=== PATIENT | female | born 1930 ===

== ENCOUNTER 2018-12-17 20:35 | Inpatient (IN) | payer MEDICAID ==
[2018-12-17 21:35] LABS: BASO # 0.1 K/uL (0.0-0.2); BASO % 0.4 % (0.0-2.0); EOS % 0.3 % (0.0-4.0); HEMOGLOBIN 11.8 g/dL (12.0-16.0); LYMPH # 2.6 K/uL (1.0-4.3); LYMPH % 22.1 % (20.0-40.0); MEAN CELL VOLUME 86.6 fl (81.0-99.0); MEAN CORPUSCULAR HEMOGLOBIN 28.5 pg (27.0-31.0); MEAN CORPUSCULAR HGB CONC 32.9 g/dL (33.0-37.0); MEAN PLATELET VOLUME 9.5 fl (7.2-11.7); MONO # 0.9 K/uL (0.0-0.8); MONO % 7.2 % (0.0-10.0); NEUT # 8.2 K/uL (1.8-7.0); RBC 4.15 Mil/uL (3.80-5.20); RED CELL DISTRIBUTION WIDTH 12.9 % (11.5-14.5); WHITE BLOOD COUNT 11.8 K/uL (4.8-10.8)
[2018-12-17 21:40] LABS: INR 1.1; PROTHROMBIN TIME 12.3 Seconds (9.8-13.1)
[2018-12-17 21:43] LABS: PARTIAL THROMBOPLASTIN TIME 30.7 Seconds (25.6-37.1)
[2018-12-17 21:49] LABS: ALB/GLOB RATIO 1.3 (1.0-2.1); ALBUMIN 4.6 g/dL (3.5-5.0); CALCIUM 9.5 mg/dL (8.4-10.2)
[2018-12-17] MEDS ORDERED: Potassium Chloride 20 mEq ER Tab PO STA (21:59)
--- NOTE | 2018-12-17 22:10 | ED PDOC ---
HPI: Chest Pain Time Seen by Provider: 12/17/18 20:45 Chief Complaint (Nursing): Palpitations Chief Complaint (Provider): Chest Pressure History Per: Patient History/Exam Limitations: no limitations Onset/Duration Of Symptoms: Days (x 2 weeks) Current Symptoms Are (Timing): Still Present Quality: Pressure Additional Complaint(s): 88 year old female with a history of hypothyroidism, HTN, vertigo and gastritis presents to the ED for evaluation of intermittent chest pressure for two weeks. Patient reports a feeling of something "stuck" in the upper part of her chest and as though she needs to cough or spit it out. Shhe was seen at an urgent care center today, found to have a very elevated heart rate and send to the ER. Patient is visiting from [place] and reports compliance with regular medications (Simvastatin, Losartan, levothyroxine, Meclizine and Omeprazole). Denies shortness of breath and leg swelling. PMD: none provided Past Medical History Reviewed: Historical Data, Nursing Documentation, Vital Signs Vital Signs: Last Vital Signs Temp 97.7 F 12/17/18 21:00 Pulse 160 H 12/17/18 21:12 Resp 22 12/17/18 21:00 BP 137/70 12/17/18 21:12 Pulse Ox 99 12/17/18 21:00 - Medical History PMH: Gastritis, HTN, Hypercholesterolemia, Hypothyroidism Other PMH: vertigo - Family History Family History: States: No Known Family Hx - Social History Current smoker - smoking cessation education provided: No Alcohol: None Drugs: Denies - Home Medications Home Medications: Ambulatory Orders Medication Instructions Recorded Levothyroxine [Synthroid] 50 mcg PO DAILY 12/17/18 Losartan [Cozaar] 50 mg PO BID 12/17/18 Omeprazole Magnesium [Acid Talent Development Specialist] 20 mg PO DAILY 12/17/18 hydroCHLOROthiazide [Hydrodiuril] 25 mg PO DAILY 12/17/18 - Allergies Allergies/Adverse Reactions: Allergies Allergy/AdvReac Type Severity Reaction Status Date / Time No Known Allergies Allergy Verified 12/17/18 20:42 DEVI Risk Score for UA/NSTEMI - DEVI Risk Score Age > 64: YES 3 or more CAD Risk Factors: NO Known CAD (Stenosis greater than 50%): NO Aspirin use in past 7 days: NO Severe Angina: NO EKG ST changes greater than 0.5mm: NO Positive Cardiac Marker: YES DEVI Score: 2 Risk %: 8% Review of Systems ROS Statement: Except As Marked, All Systems Reviewed And Found Negative Cardiovascular: Positive for: Chest Pain (pressure; foreign body sensation ("stuck" in upper chest)) Respiratory: Negative for: Cough, Shortness of Breath Musculoskeletal: Negative for: Leg Pain (or swelling) Physical Exam - Reviewed Nursing Documentation Reviewed: Yes Vital Signs Reviewed: Yes - Physical Exam Appears: Positive for: No Acute Distress Head Exam: Positive for: ATRAUMATIC, NORMOCEPHALIC Skin: Positive for: Warm, Dry Eye Exam: Positive for: EOMI, PERRL ENT: Positive for: Other (dry mucous membranes) Neck: Positive for: Painless ROM, Supple Cardiovascular/Chest: Positive for: Tachycardia (with regular rhythm). Negative for: Murmur Respiratory: Positive for: Normal Breath Sounds (clear to ausculation bilaterally). Negative for: Rales, Respiratory Distress Gastrointestinal/Abdominal: Positive for: Soft. Negative for: Tenderness Back: Positive for: Normal Inspection. Negative for: Decreased ROM Extremity: Negative for: Pedal Edema, Swelling Lymphatic: Negative for: Adenopathy Neurological/Psych: Positive for: Awake, Alert. Negative for: Motor/Sensory Deficits - Laboratory Results Result Diagrams: 12/17/18 21:23 12/17/18 21:23 Lab Results: PT 12.3 Seconds (9.8-13.1) 12/17/18 21:23 INR 1.1 12/17/18 21:23 APTT 30.7 Seconds (25.6-37.1) 12/17/18 21:23 NT-Pro-B Natriuret Pep 1680 pg/ml (0-900) H 12/17/18 21:23 Total Bilirubin 0.5 mg/dl (0.2-1.3) 12/17/18 21:23 AST 29 U/L (14-36) 12/17/18 21:23 ALT 22 U/L (9-52) 12/17/18 21:23 Alkaline Phosphatase 74 U/L (38-126) 12/17/18 21:23 Total Protein 8.0 G/DL (6.3-8.2) 12/17/18 21:23 Albumin 4.6 g/dL (3.5-5.0) 12/17/18 21:23 Globulin 3.4 gm/dL (2.2-3.9) 12/17/18 21:23 Albumin/Globulin Ratio 1.3 (1.0-2.1) 12/17/18 21:23 - ECG O2 Sat by Pulse Oximetry: 99 (RA) Pulse Ox Interpretation: Normal - Radiology X-Ray: Interpreted by Me X-Ray Interpretation: No Acute Disease - Critical Care Total Time (In Min): 30 Documented Critical Care: Time excludes all time spent performint seperately billable procedures Medical Decision Making Medical Decision Makin:06 Impression: tachyarrythmia EKG demonstrates narrow QRS and tachycardia; SVT vs junctional tachycardia At bedside on arrival for severe tachycardia at 170. Patient given 5 mg of Cardizem with conversion of heart rate to normal sinus rhythm at 78. Orders: --EKG --BNP --CMP --CBC --PTT --PT --Free T4 --T3 --Mag --Phos --TSH --Troponin --CXR --KDur 40 meq IV 22:00 Labs reveal elevated Troponin and pro-BNP levels. 22:[address] Reyes, restaurant worker train station server. He recommends patient take Aspirin daily and 30 mg of Cardizem every 8 hours. Also discussed with Dr. Harris who accepted patient for admission. Scribe Attestation: Documented by Haydee Narayan, acting as a scribe for Griselda Muro MD Provider Scribe Attestation: All medical record entries made by the Scribe were at my direction and personally dictated by me. I have reviewed the chart and agree that the record accurately reflects my personal performance of the history, physical exam, medical decision making, and the department course for this patient. I have also personally directed, reviewed, and agree with the discharge instructions and disposition. Disposition - Clinical Impression Clinical Impression: Tachyarrhythmia Counseled Patient/Family Regarding: Studies Performed, Diagnosis - Disposition Disposition Time: 22:30 Condition: GUARDED - Pt Status Changed To: Hospital Disposition Of: Inpatient - Admit Certification Admit to Inpatient:: After my assessment, the patient will require hospitalization for at least two midnights. This is because of the severity of symptoms shown, intensity of services needed, and/or the medical risk in this patient being treated as an outpatient. - POA Present On Arrival: None
[2018-12-17 22:14] LABS: TROPONIN I 0.123 ng/mL (0.00-0.120)
[2018-12-17 22:19] LABS: T3 0.802 nmol/L (1.49-2.60)
[2018-12-17] MEDS ORDERED: Potassium Chloride 20 mEq ER Tab PO ONE (22:46)
[2018-12-17] MEDS ORDERED: Aspirin 325 mg EC Tablets PO ONE (22:46)
--- NOTE | 2018-12-17 23:35 | CP.PCM.HP ---
<ShaneScottieharsh - Last Filed: 12/18/18 02:00> History of Present Illness - History of Present Illness History of Present Illness: This is 88 y/o F with PMH of Hypothyroid, HTN, Vertigo, and Gastritis admitted to [facility] for evaluation and treatment of Palpitations, Tachyarrhythmia and elevated troponin. Patient is c/o 1 day history of chest discomfort, heart racing and palpitations. Patient visited urgent care with this symptoms and found to have Junctional tachy with prolonged QRS in EKG with HR of 163 and sent to the ER for further eval and treat. Patient is visiting [employer], reports previous hx of on and off heart racing but never this kind of discomfort noted before. Denies any n/v/dizziness/blurred vision, SOB, abdominal pain , urianry symptoms, or numbness/tingling or weakness. PMH: Hypothyroid, HTN, Vertigo, and Gastritis PSH: Denies Allg: NKDA FH: + heart disease: sister SH: Denies alcohol, smoking or drug use ROS: As per HPI ER course: VS: Afebrile, HR 160, RR 22, 137/70, Spo2 99% RA CBC: 11.8>11.8/35.9<277 CMP: significant for K+ 3.5, BUN/Cr 34/1.7 Mg=: 1.2 Trop elevated Elevated pro-BNP Normal TSH S/p ASA , KCL 40mg and cardizem in ER Present on Admission - Present on Admission Any Indicators Present on Admission: No Review of Systems - Constitutional Constitutional: absent: Excessive Sweating - EENT Eyes: absent: Blurred Vision Ears: absent: Dizziness Nose/Mouth/Throat: absent: Nasal Congestion, Nose Pain, Facial Pain - Breasts Breasts: absent: Skin Changes - Cardiovascular Cardiovascular: Palpitations. absent: Chest Pain (Discomfort/Tightness ), Chest Pain at Rest, Claudication, Diaphoresis - Respiratory Respiratory: absent: Cough, Dyspnea, Hemoptysis - Gastrointestinal Gastrointestinal: absent: Abdominal Pain - Genitourinary Genitourinary: absent: Change in Urinary Stream - Musculoskeletal Musculoskeletal: absent: Muscle Weakness, Numbness - Integumentary Integumentary: absent: Rash - Neurological Neurological: absent: Dizziness, Numbness, Syncope, Tingling, Tremor, Weakness - Psychiatric Psychiatric: absent: Anxiety, Confusion - Endocrine Endocrine: absent: Fatigue - Hematologic/Lymphatic Hematologic: absent: Easy Bleeding Past Patient History - Past Social History Alcohol: None Drugs: Denies - CARDIAC Hx Hypercholesterolemia: Yes Hx Hypertension: Yes - ENDOCRINE/METABOLIC Hx Hypothyroidism: Yes - GASTROINTESTINAL Hx Gastritis: Yes - PSYCHIATRIC Hx Substance Use: No - SURGICAL HISTORY Hx Surgeries: No Meds Allergies/Adverse Reactions: Allergies Allergy/AdvReac Type Severity Reaction Status Date / Time No Known Allergies Allergy Verified 12/17/18 20:42 Physical Exam - Constitutional Appears: No Acute Distress - Head Exam Head Exam: ATRAUMATIC, NORMAL INSPECTION, NORMOCEPHALIC - Eye Exam Eye Exam: EOMI, Normal appearance, PERRL Pupil Exam: NORMAL ACCOMODATION, PERRL - ENT Exam ENT Exam: Mucous Membranes Moist, Normal Exam - Neck Exam Neck exam: Positive for: Normal Inspection - Respiratory Exam Respiratory Exam: Clear to Auscultation Bilateral, NORMAL BREATHING PATTERN. absent: Accessory Muscle Use, Chest Wall Tenderness, Decreased Breath Sounds, Prolonged Expiratory Phase, Rhonchi, Wheezes, Respiratory Distress - Cardiovascular Exam Cardiovascular Exam: REGULAR RHYTHM, +S1, +S2 - GI/Abdominal Exam GI & Abdominal Exam: Normal Bowel Sounds, Soft. absent: Tenderness - Back Exam Back exam: NORMAL INSPECTION. absent: CVA tenderness (L), CVA tenderness (R) - Neurological Exam Neurological exam: Alert, CN II-XII Intact, Oriented x3 - Psychiatric Exam Psychiatric exam: Normal Affect - Skin Skin Exam: Normal Color Results - Vital Signs Recent Vital Signs: Last Vital Signs Temp 98.1 F 12/17/18 23:22 Pulse 78 12/17/18 23:22 Resp 20 12/17/18 23:22 BP 122/64 12/17/18 23:22 Pulse Ox 99 12/17/18 23:33 - Labs Result Diagrams: 12/17/18 21:23 12/17/18 21:23 Labs: Laboratory Results - last 24 hr 12/17/18 12/17/18 12/17/18 21:23 21:23 21:23 WBC 11.8 H RBC 4.15 Hgb 11.8 L Hct 35.9 MCV 86.6 MCH 28.5 MCHC 32.9 L RDW 12.9 Plt Count 277 MPV 9.5 Neut % (Auto) 70.0 Lymph % (Auto) 22.1 Grand % (Auto) 7.2 Eos % (Auto) 0.3 Baso % (Auto) 0.4 Neut # (Auto) 8.2 H Lymph # (Auto) 2.6 Grand # (Auto) 0.9 H Eos # (Auto) 0.0 Baso # (Auto) 0.1 PT 12.3 INR 1.1 APTT 30.7 Sodium 138 Potassium 3.5 L Chloride 102 Carbon Dioxide 21 L Anion Gap 19 BUN 34 H Creatinine 1.7 H Est GFR ( Amer) 34 Est GFR (Non-Af Amer) 28 Random Glucose 117 H Calcium 9.5 Phosphorus 3.6 Magnesium 1.2 L Total Bilirubin 0.5 AST 29 ALT 22 Alkaline Phosphatase 74 Troponin I 0.1230 H* NT-Pro-B Natriuret Pep 1680 H Total Protein 8.0 Albumin 4.6 Globulin 3.4 Albumin/Globulin Ratio 1.3 Free T4 Total T3 0.802 L TSH 3rd Generation 1.97 12/17/18 21:35 WBC RBC Hgb Hct MCV MCH MCHC RDW Plt Count MPV Neut % (Auto) Lymph % (Auto) Grand % (Auto) Eos % (Auto) Baso % (Auto) Neut # (Auto) Lymph # (Auto) Grand # (Auto) Eos # (Auto) Baso # (Auto) PT INR APTT Sodium Potassium Chloride Carbon Dioxide Anion Gap BUN Creatinine Est GFR ( Amer) Est GFR (Non-Af Amer) Random Glucose Calcium Phosphorus Magnesium Total Bilirubin AST ALT Alkaline Phosphatase Troponin I NT-Pro-B Natriuret Pep Total Protein Albumin Globulin Albumin/Globulin Ratio Free T4 1.68 Total T3 TSH 3rd Generation Assessment & Plan - Assessment and Plan (Free Text) Assessment: A/P: 88 y/o F with PMH of Hypothyroid, HTN, Vertigo, and Gastritis admitted to [facility] for evaluation and treatment of Palpitations, Tachyarrhythmia and elevated troponin. Palpitations/Tachyarrhythmia - EKG at urgent care: Junctional tachy with prolonged QRS/ HR of 163 - EKG in ER: SVT - EKG s/p Cardizem: NSR - Consult Cardiology, f/u recommendations - S/p ASA and cardizem at ER - START Cardizem 30mg PO Q8H - PENDING ECHO - F/u Lipids and A1C Elevated troponin, likely due to Tachyarrhythmia causing cardiac injury - Consult cardiology - Follow up Trop x 2 Q6H Hypokalemia - S/p KCL 40mg PO Hypomagnesemia - START Mg Sulfate 4gm HTN, Chronic - Controlled - C/w home medications as ordered Hypothyroid - Chronic, controlled - C/w Home medication/Levothyroxine 50 mcg daily PO Gastritis, chronic - Controlled - C/w Protonix daily DVT PPX - SCD and ambulatory for now Case discussed with Dr. Harris, agrees with plan. <Rafy Harris - Last Filed: 12/18/18 02:59> Results - Vital Signs Recent Vital Signs: Last Vital Signs Temp 98.3 F 12/18/18 00:48 Pulse 62 12/18/18 01:37 Resp 16 12/18/18 01:37 BP 136/73 12/18/18 00:48 Pulse Ox 95 12/18/18 00:48 - Labs Result Diagrams: 12/17/18 21:23 12/17/18 21:23 Labs: Laboratory Results - last 24 hr 12/17/18 12/17/18 12/17/18 21:23 21:23 21:23 WBC 11.8 H RBC 4.15 Hgb 11.8 L Hct 35.9 MCV 86.6 MCH 28.5 MCHC 32.9 L RDW 12.9 Plt Count 277 MPV 9.5 Neut % (Auto) 70.0 Lymph % (Auto) 22.1 Grand % (Auto) 7.2 Eos % (Auto) 0.3 Baso % (Auto) 0.4 Neut # (Auto) 8.2 H Lymph # (Auto) 2.6 Grand # (Auto) 0.9 H Eos # (Auto) 0.0 Baso # (Auto) 0.1 PT 12.3 INR 1.1 APTT 30.7 Sodium 138 Potassium 3.5 L Chloride 102 Carbon Dioxide 21 L Anion Gap 19 BUN 34 H Creatinine 1.7 H Est GFR ( Amer) 34 Est GFR (Non-Af Amer) 28 Random Glucose 117 H Calcium 9.5 Phosphorus 3.6 Magnesium 1.2 L Total Bilirubin 0.5 AST 29 ALT 22 Alkaline Phosphatase 74 Troponin I 0.1230 H* NT-Pro-B Natriuret Pep 1680 H Total Protein 8.0 Albumin 4.6 Globulin 3.4 Albumin/Globulin Ratio 1.3 Free T4 Total T3 0.802 L TSH 3rd Generation 1.97 12/17/18 21:35 WBC RBC Hgb Hct MCV MCH MCHC RDW Plt Count MPV Neut % (Auto) Lymph % (Auto) Grand % (Auto) Eos % (Auto) Baso % (Auto) Neut # (Auto) Lymph # (Auto) Grand # (Auto) Eos # (Auto) Baso # (Auto) PT INR APTT Sodium Potassium Chloride Carbon Dioxide Anion Gap BUN Creatinine Est GFR ( Amer) Est GFR (Non-Af Amer) Random Glucose Calcium Phosphorus Magnesium Total Bilirubin AST ALT Alkaline Phosphatase Troponin I NT-Pro-B Natriuret Pep Total Protein Albumin Globulin Albumin/Globulin Ratio Free T4 1.68 Total T3 TSH 3rd Generation Attending/Attestation - Attestation I have personally seen and examined this patient.: Yes I have fully participated in the care of the patient.: Yes I have reviewed all pertinent clinical information: Yes Notes (Text): 12/18/18 02:34 I saw, examined and discussed this patient with Dr Lynn. I agree with the assessment and plan outlined which represent my direct input. This is an 88 years old female Holidaying from [place], developed palpitation and comes with a Narrow QRS Tachycardia of 168/min. This converted with Cardizem in the ED. This probably was caused by the Hypomagnesemia and hypokalemia. The Tachycardia which appeared to be a SVT caused the increase in Pro BNP and demand ischemia elevated troponin. We will consult Cardiology, cardiac monitoring and treat the Tachycardia with Cardizem. Replete Potassium, Magnesium and IV fluids for the dehydration. Follow electrolytes, Serial troponin and EKG and ECHO. Treat Hypothyroidism and HTN. Rafy Harris MD 12/18/18 02:56
[2018-12-18] MEDS ORDERED: Magnesium Sulfate 4 gm/100 ml 4 GM/100 ML BAG IVPB ONE (01:30)
[2018-12-18] MEDS: Lactated Ringer's 1,000 ML IV SCH ×3 (03:20→23:00)
[2018-12-18 05:33] LABS: CALCIUM 8.8 mg/dL (8.4-10.2)
[2018-12-18 05:44] LABS: TROPONIN I 0.545 ng/mL (0.00-0.120)
[2018-12-18] MEDS: Levothyroxine 50 MCG TAB PO SCH (06:11)
[2018-12-18] MEDS: Pantoprazole 40 mg EC Tab PO SCH (08:38)
[2018-12-18] MEDS ORDERED: Enoxaparin 40 mg Syringe SC SCH (09:00)
[2018-12-18] MEDS ORDERED: OMEPRAZOLE MAGNESIUM 20 MG PO SCH (09:00)
--- NOTE | 2018-12-18 09:00 | CARD ---
APPROVED REPORT Date of service: 12/18/2018 EKG Measurement Heart [id number] <Conclusion> Normal sinus rhythm Normal ECG
--- NOTE | 2018-12-18 09:16 | CARD ---
APPROVED REPORT Date of service: 12/17/2018 EKG Measurement Heart [id number] [place] [id number] <Conclusion> Normal sinus rhythm Nonspecific ST abnormality Abnormal ECG
--- NOTE | 2018-12-18 09:17 | CARD ---
APPROVED REPORT Date of service: 12/17/2018 EKG Measurement Heart [id number] <Conclusion> Supraventricular tachycardia Nonspecific ST-T changes Abnormal ECG
--- NOTE | 2018-12-18 09:55 | RAD ---
Date of service: 12/17/2018 HISTORY: tachycardia COMPARISON: No prior. TECHNIQUE: 1 view obtained. FINDINGS: LUNGS: No active pulmonary disease right chest. Borderline atelectasis or infiltrate inferior left lung zone. PLEURA: No significant pleural effusion identified, no pneumothorax apparent. CARDIOVASCULAR: No aortic atherosclerotic calcification present. Potential cardiomegaly. No pulmonary vascular congestion identified. OSSEOUS STRUCTURES: No significant abnormalities. VISUALIZED UPPER ABDOMEN: Normal. OTHER FINDINGS: None. IMPRESSION: Limited patchy atelectasis or infiltrate left base with remaining lung neves clear. Borderline cardiomegaly.
--- NOTE | 2018-12-18 12:22 | CP.PCM.PN ---
Subjective - Date & Time of Evaluation Date of Evaluation: 12/18/18 Time of Evaluation: 14:11 - Subjective Subjective: Pt seen and examined bedside, no new complaints. Denies palpitations, chest pain, change in vision, headache, nausea, dizziness, new-onset edema, and SOB. She admits to loss of appetite and decreased PO intake for the last few days. Daughter bedside. Objective - Vital Signs/Intake and Output Vital Signs (last 24 hours): Temp Pulse Resp BP Pulse Ox 98.2 F 57 L 18 106/58 L 98 12/18/18 12:13 12/18/18 12:13 12/18/18 12:13 12/18/18 12:13 12/18/18 12:13 - Medications Medications: Current Medications Acetaminophen (Tylenol 325mg Tab) 650 mg PO Q6 PRN PRN Reason: Pain, moderate (4-7) Aspirin (Ecotrin) 81 mg PO DAILY [facility] Last Admin: 12/18/18 08:38 Dose: 81 mg Diltiazem HCl (Cardizem) 30 mg PO Q8H [facility] Last Admin: 12/18/18 05:00 Dose: Not Given Lactated Ringer's (Lactated Ringer's) 1,000 mls @ 100 mls/hr IV .Q10H [facility] Last Admin: 12/18/18 03:20 Dose: 100 mls/hr Levothyroxine Sodium (Synthroid) 50 mcg PO DAILY@0630 [facility] Last Admin: 12/18/18 06:11 Dose: 50 mcg Losartan Potassium (Cozaar) 50 mg PO BID [facility] Last Admin: 12/18/18 02:00 Dose: Not Given Pantoprazole Sodium (Protonix Ec Tab) 40 mg PO DAILY [facility] Last Admin: 12/18/18 08:38 Dose: 40 mg - Labs Labs: 12/17/18 21:23 12/18/18 04:50 PT 12.3 Seconds (9.8-13.1) 12/17/18 21:23 INR 1.1 12/17/18 21:23 APTT 30.7 Seconds (25.6-37.1) 12/17/18 21:23 - Constitutional Appears: Non-toxic, No Acute Distress - Head Exam Head Exam: NORMAL INSPECTION - ENT Exam ENT Exam: Mucous Membranes Moist - Respiratory Exam Respiratory Exam: NORMAL BREATHING PATTERN. absent: Respiratory Distress - Cardiovascular Exam Cardiovascular Exam: REGULAR RHYTHM, +S1, +S2 - GI/Abdominal Exam GI & Abdominal Exam: Soft. absent: Tenderness - Extremities Exam Extremities Exam: absent: Pedal Edema - Neurological Exam Neurological Exam: Alert, Awake, Oriented x3 - Psychiatric Exam Psychiatric exam: Normal Affect, Normal Mood - Skin Skin Exam: Dry, Normal Color, Warm Assessment and Plan - Assessment and Plan (Free Text) Assessment: 88 y/o F with PMH of Hypothyroid, HTN, Vertigo, and Gastritis admitted to [facility] for evaluation and treatment of Palpitations, Tachyarrhythmia and elevated troponin. Echo (12/18) pending Plan: Palpitations/Tachyarrhythmia - EKG at urgent care: Junctional tachy with prolonged QRS/ HR of 163 - EKG in ER: SVT - EKG s/p Cardizem: NSR - Cardiology consulted (Dr Reyes): potential cath? - S/p ASA and cardizem at ER - Cardizem 30mg PO Q8H - F/u ECHO (12/18) - Lipids WNL - HgA1C 6.1 Elevated troponin, likely due to Tachyarrhythmia causing cardiac injury - Consult cardiology, inputs and rec appreciated - Troponin trend (12/18): 0.123, 0.545, 0.428 KARY - No hx of CKD - BUN/Cr 30/1.4 (34/1.7 admission) - Likely 2/2 to dehydration, monitor Hypokalemia - Resolved, 4.5 - 4.5 s/p KCL 40mg PO - 3.5 on admission - Replace as necessary, monitor Hypomagnesemia - Resolved, 3.3 s/p Mg Sulfate 4gm - 1.2 on admission - Monitor HTN, Chronic - Controlled - C/w home medications as ordered Hypothyroid - Chronic, controlled - C/w Home medication/Levothyroxine 50 mcg daily PO Gastritis, chronic - Controlled - C/w Protonix daily DVT PPX - SCD and ambulatory for now
--- NOTE | 2018-12-18 15:25 | CP.PCM.CON ---
History of Present Illness - History of Present Illness History of Present Illness: 88 year old female with a history of hypothyroidism, HTN, vertigo and gastritis presents to the ED for evaluation of intermittent chest pressure for two weeks. Patient reports a feeling of something "stuck" in the upper part of her chest and as though she needs to cough or spit it out. Luna was seen at an urgent care center today, found to have a very elevated heart rate and send to the ER. Patient is visiting from [place] and reports compliance with regular medications (Simvastatin, Losartan, levothyroxine, Meclizine and Omeprazole). Denies shortness of breath and leg swelling. Review of Systems - Review of Systems Systems not reviewed;Unavailable: Language Barrier Past Patient History - Past Medical History & Family History Past Medical History?: Yes - Past Social History Smoking Status: Never Smoked Chewing Tobacco Use: No Cigar Use: No Alcohol: None Drugs: Denies Home Situation {Lives}: With Family Domestic Violence: Negative - CARDIAC Hx Hypercholesterolemia: Yes Hx Hypertension: Yes - PULMONARY Hx Respiratory Disorders: No - NEUROLOGICAL Hx Neurological Disorder: No - HEENT Hx HEENT Problems: Yes Other/Comment: hard of hearing,left - RENAL Hx Chronic Kidney Disease: No - ENDOCRINE/METABOLIC Hx Hypothyroidism: Yes - HEMATOLOGICAL/ONCOLOGICAL Hx Blood Disorders: No - INTEGUMENTARY Hx Dermatological Problems: No - MUSCULOSKELETAL/RHEUMATOLOGICAL Hx Musculoskeletal Disorders: No Hx Falls: No - GASTROINTESTINAL Hx Gastritis: Yes - GENITOURINARY/GYNECOLOGICAL Hx Genitourinary Disorders: No - PSYCHIATRIC Hx Substance Use: No - SURGICAL HISTORY Hx Surgeries: No - ANESTHESIA Hx Anesthesia: Yes Hx Anesthesia Reactions: No Hx Malignant Hyperthermia: No Has any member of the family had a problem w/ anesthesia?: No Meds Allergies/Adverse Reactions: Allergies Allergy/AdvReac Type Severity Reaction Status Date / Time No Known Allergies Allergy Verified 12/17/18 20:42 - Medications Medications: Current Medications Acetaminophen (Tylenol 325mg Tab) 650 mg PO Q6 PRN PRN Reason: Pain, moderate (4-7) Aspirin (Ecotrin) 81 mg PO DAILY [facility] Last Admin: 12/18/18 08:38 Dose: 81 mg Diltiazem HCl (Cardizem) 30 mg PO Q8H [facility] Last Admin: 12/18/18 12:40 Dose: Not Given Lactated Ringer's (Lactated Ringer's) 1,000 mls @ 100 mls/hr IV .Q10H [facility] Last Admin: 12/18/18 15:17 Dose: 100 mls/hr Levothyroxine Sodium (Synthroid) 50 mcg PO DAILY@0630 [facility] Last Admin: 12/18/18 06:11 Dose: 50 mcg Losartan Potassium (Cozaar) 50 mg PO BID [facility] Last Admin: 12/18/18 02:00 Dose: Not Given Pantoprazole Sodium (Protonix Ec Tab) 40 mg PO DAILY [facility] Last Admin: 12/18/18 08:38 Dose: 40 mg Physical Exam - Constitutional Appears: Non-toxic - Head Exam Head Exam: ATRAUMATIC, NORMAL INSPECTION, NORMOCEPHALIC - Eye Exam Eye Exam: EOMI, Normal appearance, PERRL. absent: Conjunctival injection, Nystagmus, Periorbital swelling, Periorbital tenderness, Scleral icterus Pupil Exam: NORMAL ACCOMODATION, PERRL. absent: Fixed, Irregular, Miosis, Mydriatic, Unequal - ENT Exam ENT Exam: Mucous Membranes Moist, Normal Exam. absent: Mucous Membranes Dry, Normal External Ear Exam, Normal Oropharynx, TM's Normal Bilaterally - Neck Exam Neck exam: Positive for: Normal Inspection. Negative for: Full Rom, Lymphadenopathy, Meningismus, Tenderness, Thyromegaly - Respiratory Exam Respiratory Exam: Clear to Auscultation Bilateral, NORMAL BREATHING PATTERN. absent: Accessory Muscle Use, Chest Wall Tenderness, Decreased Breath Sounds, Prolonged Expiratory Phase, Rales, Rhonchi, Wheezes, Respiratory Distress, Stridor - Cardiovascular Exam Cardiovascular Exam: REGULAR RHYTHM, +S1, +S2. absent: Bradycardia, Tachycardia, Clicks, Diastolic murmur, Gallop, Irregular Rhythm, JVD, RRR, Rubs, +S4, Systolic Murmur - GI/Abdominal Exam GI & Abdominal Exam: Normal Bowel Sounds, Soft. absent: Bruit, Diminished Bowel Sounds, Distended, Firm, Guarding, Hernia, Hyperactive Bowel Sounds, Hypoactive Bowel Sounds, Mass, Organomegaly, Pulsatile Mass, Rebound, Rigid, Tenderness - Rectal Exam Rectal Exam: Deferred - Extremities Exam Extremities exam: Positive for: normal inspection - Back Exam Back exam: NORMAL INSPECTION - Neurological Exam Neurological exam: Alert, CN II-XII Intact, Normal Gait, Oriented x3, Reflexes Normal Results - Vital Signs Recent Vital Signs: Last Vital Signs Temp 98.2 F 12/18/18 12:13 Pulse 57 L 12/18/18 12:40 Resp 18 12/18/18 12:40 BP 106/58 L 12/18/18 12:40 Pulse Ox 98 12/18/18 12:40 - Labs Result Diagrams: 12/20/18 04:30 12/21/18 05:15 Labs: Laboratory Results - last 24 hr 12/17/18 12/17/18 12/17/18 21:23 21:23 21:23 WBC 11.8 H RBC 4.15 Hgb 11.8 L Hct 35.9 MCV 86.6 MCH 28.5 MCHC 32.9 L RDW 12.9 Plt Count 277 MPV 9.5 Neut % (Auto) 70.0 Lymph % (Auto) 22.1 [place] % (Auto) 7.2 Eos % (Auto) 0.3 Baso % (Auto) 0.4 Neut # (Auto) 8.2 H Lymph # (Auto) 2.6 [place] # (Auto) 0.9 H Eos # (Auto) 0.0 Baso # (Auto) 0.1 PT 12.3 INR 1.1 APTT 30.7 Sodium 138 Potassium 3.5 L Chloride 102 Carbon Dioxide 21 L Anion Gap 19 BUN 34 H Creatinine 1.7 H Est GFR ( Amer) 34 Est GFR (Non-Af Amer) 28 Random Glucose 117 H Hemoglobin A1c Calcium 9.5 Phosphorus 3.6 Magnesium 1.2 L Total Bilirubin 0.5 AST 29 ALT 22 Alkaline Phosphatase 74 Troponin I 0.1230 H* NT-Pro-B Natriuret Pep 1680 H Total Protein 8.0 Albumin 4.6 Globulin 3.4 Albumin/Globulin Ratio 1.3 Triglycerides Cholesterol LDL Cholesterol Direct HDL Cholesterol Free T4 Total T3 0.802 L TSH 3rd Generation 1.97 12/17/18 12/18/18 12/18/18 21:35 04:50 04:50 WBC RBC Hgb Hct MCV MCH MCHC RDW Plt Count MPV Neut % (Auto) Lymph % (Auto) [place] % (Auto) Eos % (Auto) Baso % (Auto) Neut # (Auto) Lymph # (Auto) [place] # (Auto) Eos # (Auto) Baso # (Auto) PT INR APTT Sodium 139 Potassium 4.5 Chloride 109 H Carbon Dioxide 22 Anion Gap 13 BUN 30 H Creatinine 1.4 H Est GFR ( Amer) 43 Est GFR (Non-Af Amer) 36 Random Glucose 90 Hemoglobin A1c 6.1 Calcium 8.8 Phosphorus Magnesium 3.3 H Total Bilirubin AST ALT Alkaline Phosphatase Troponin I 0.5450 H* NT-Pro-B Natriuret Pep Total Protein Albumin Globulin Albumin/Globulin Ratio Triglycerides 99 Cholesterol 157 LDL Cholesterol Direct 86 HDL Cholesterol 38 Free T4 1.68 Total T3 TSH 3rd Generation 12/18/18 08:45 WBC RBC Hgb Hct MCV MCH MCHC RDW Plt Count MPV Neut % (Auto) Lymph % (Auto) [place] % (Auto) Eos % (Auto) Baso % (Auto) Neut # (Auto) Lymph # (Auto) [place] # (Auto) Eos # (Auto) Baso # (Auto) PT INR APTT Sodium Potassium Chloride Carbon Dioxide Anion Gap BUN Creatinine Est GFR ( Amer) Est GFR (Non-Af Amer) Random Glucose Hemoglobin A1c Calcium Phosphorus Magnesium Total Bilirubin AST ALT Alkaline Phosphatase Troponin I 0.4280 H* NT-Pro-B Natriuret Pep Total Protein Albumin Globulin Albumin/Globulin Ratio Triglycerides Cholesterol LDL Cholesterol Direct HDL Cholesterol Free T4 Total T3 TSH 3rd Generation Assessment & Plan (1) SVT (supraventricular tachycardia) Status: Acute (2) Troponin level elevated Status: Acute (3) HTN (hypertension) Status: Acute - Assessment and Plan (Free Text) Plan: PT HAS NO CP OR OCHOA. SHE IS VERY ACTIVE. SHE DID HOWEVER SPILL TROP WITH TACHYARRYTHMIA. I SUSPECT DEMAND ISCHEMIA. WILL HAVE PT UNDERGO [facility] SOON TROP NORMALIZES. IF POSITIVE WILL DO CATH. CONT LOW DOSE CCB AND ASA. IVF AND HOLD ACEI/ARB.,
[2018-12-18] MEDS ORDERED: Magnesium Sulfate 2 gm/50 ml 2 GM/50 ML BAG IVPB ONE (15:26)
--- NOTE | 2018-12-18 19:05 | CARD ---
APPROVED REPORT Date of service: 12/18/2018 EXAM: Two-dimensional and M-mode echocardiogram with Doppler and color Doppler. Other Information Quality : GoodRhythm : NSR INDICATION Palpitations Elevated troponins 2D DIMENSIONS IVSd1.00 (0.7-1.1cm)LVDd4.12 (3.9-5.9cm) LVOT Diameter1.90 (1.8-2.4cm)PWd0.99 (0.7-1.1cm) IVSs1.26 (0.8-1.2cm)LVDs2.37 (2.5-4.0cm) FS (%) 42.3 %PWs1.38 (0.8-1.2cm) M-Mode DIMENSIONS Left Atrium (MM)3.39 (2.5-4.0cm)IVSd1.12 (0.7-1.1cm) Aortic Root2.92 (2.2-3.7cm)LVDd4.83 (4.0-5.6cm) Aortic Cusp Exc.1.51 (1.5-2.0cm)PWd0.86 (0.7-1.1cm) IVSs1.60 cmFS (%) 39 % LVDs2.96 (2.0-3.8cm)PWs1.36 cm Aortic Valve AoV Peak Fuubdhrh253.7cm/sAoV VTI44.6cmAO Peak GR.16mmHg LVOT Peak Cvrmkusm21.6cm/sLVOT VTI19.16cmAO Mean GR.8mmHg [place] (VMAX)0.18oi1JJW (VTI)0.84cm2 Mitral Valve MV E Ucpgfsrj97.7cm/sMV DECEL HSGX423eyQH A Cqeqyvoa890.8cm/s MV MUD81rdI/A ratio0.8MVA (PHT)3.77cm2 TDI Lateral E' Peak V8.15cm/sMedial E' Peak V9.94cm/sE/Lateral E'11.1 E/Medial E'9.1 Tricuspid Valve TR Peak Iurexqro430ai/sRAP XFTLVTAB58utRwLY Peak Gr.24mmHg TPWI97laRo LEFT VENTRICLE The left ventricle is normal size. There is normal left ventricular wall thickness. The left ventricular systolic function is normal. The estimated ejection fraction is 55-60% No regional wall motion abnormalities noted.. Transmitral Doppler flow pattern is Grade I-abnormal relaxation pattern. No left ventricle thrombus noted on this study. There is no ventricular septal defect visualized. There is no left ventricular aneurysm. There is no mass noted in the left ventricle. RIGHT VENTRICLE The right ventricle is normal size. There is normal right ventricular wall thickness. The right ventricular systolic function is normal. ATRIA The left atrium size is normal. The right atrium size is normal. The interatrial septum is intact with no evidence for an atrial septal defect. AORTIC VALVE The aortic valve is normal in structure. Trace aortic regurgitation is present. There is mild aortic valvular stenosis. There is no aortic valvular vegetation. MITRAL VALVE The mitral valve is normal in structure. There is no evidence of mitral valve prolapse. There is no mitral valve stenosis. There is mild mitral valve regurgitation noted. TRICUSPID VALVE The tricuspid valve is normal in structure. There is mild tricuspid valve regurgitation noted. RVSP is calculated at 30 mm Hg. There is no tricuspid valve prolapse or vegetation. There is no tricuspid valve stenosis. PULMONIC VALVE The pulmonary valve is normal in structure. There is no pulmonic valvular regurgitation. There is no pulmonic valvular stenosis. GREAT VESSELS The aortic root is normal in size. The ascending aorta is normal in size. The pulmonary artery is normal. The IVC is normal in size and collapses >50% with inspiration. PERICARDIAL EFFUSION There is no pericardial effusion. There is no pleural effusion. <Conclusion> The estimated ejection fraction is 55-60% Transmitral Doppler flow pattern is Grade I-abnormal relaxation pattern. The left atrium size is normal. There is mild aortic valvular stenosis. There is mild mitral valve regurgitation noted. There is mild tricuspid valve regurgitation noted. RVSP is calculated at 30 mm Hg.
[2018-12-19] MEDS: Levothyroxine 50 MCG TAB PO SCH (06:20)
[2018-12-19 06:26] LABS: MEAN CELL VOLUME 86.3 fl (81.0-99.0); MEAN CORPUSCULAR HEMOGLOBIN 28.7 pg (27.0-31.0); MEAN CORPUSCULAR HGB CONC 33.2 g/dL (33.0-37.0); RBC 3.5 Mil/uL (3.80-5.20); RED CELL DISTRIBUTION WIDTH 13.1 % (11.5-14.5); WHITE BLOOD COUNT 9.2 K/uL (4.8-10.8)
[2018-12-19 06:32] LABS: ALB/GLOB RATIO 1.2 (1.0-2.1); ALBUMIN 3.2 g/dL (3.5-5.0); CALCIUM 8.6 mg/dL (8.4-10.2)
[2018-12-19 06:43] LABS: TROPONIN I 0.139 ng/mL (0.00-0.120)
[2018-12-19 07:00] LABS: T3 0.621 nmol/L (1.49-2.60)
[2018-12-19 08:05] VITALS: RESP 18
[2018-12-19] MEDS: Lactated Ringer's 1,000 ML IV SCH ×2 (09:26→17:36)
[2018-12-19] MEDS: Pantoprazole 40 mg EC Tab PO SCH (09:27)
--- NOTE | 2018-12-19 12:06 | CP.PCM.PN ---
Subjective - Date & Time of Evaluation Date of Evaluation: 12/19/18 Time of Evaluation: 09:45 - Subjective Subjective: Sinus rhythm on Tele monitor , occ PVCs, HR 70s Pt denies CP no plpitation no SOB no abd pain no SOB Objective - Vital Signs/Intake and Output Vital Signs (last 24 hours): Temp Pulse Resp BP Pulse Ox 97.8 F 56 L 18 132/69 98 12/19/18 08:04 12/19/18 09:00 12/19/18 08:04 12/19/18 08:04 12/19/18 08:04 Intake and Output: 12/19/18 12/19/18 06:59 18:59 Intake Total 1830 Balance 1830 - Medications Medications: Current Medications Acetaminophen (Tylenol 325mg Tab) 650 mg PO Q6 PRN PRN Reason: Pain, moderate (4-7) Aspirin (Ecotrin) 81 mg PO DAILY [facility] Last Admin: 12/19/18 09:26 Dose: 81 mg Diltiazem HCl (Cardizem) 30 mg PO Q8H [facility] Last Admin: 12/19/18 05:40 Dose: Not Given Lactated Ringer's (Lactated Ringer's) 1,000 mls @ 100 mls/hr IV .Q10H [facility] Last Admin: 12/19/18 09:26 Dose: Not Given Levothyroxine Sodium (Synthroid) 50 mcg PO DAILY@0630 [facility] Last Admin: 12/19/18 06:20 Dose: 50 mcg Losartan Potassium (Cozaar) 50 mg PO BID [facility] Last Admin: 12/18/18 02:00 Dose: Not Given Pantoprazole Sodium (Protonix Ec Tab) 40 mg PO DAILY [facility] Last Admin: 12/19/18 09:27 Dose: 40 mg - Labs Labs: 12/19/18 04:30 12/19/18 04:30 PT 12.3 Seconds (9.8-13.1) 12/17/18 21:23 INR 1.1 12/17/18 21:23 APTT 30.7 Seconds (25.6-37.1) 12/17/18 21:23 - Constitutional Appears: Non-toxic, No Acute Distress - Head Exam Head Exam: ATRAUMATIC, NORMAL INSPECTION, NORMOCEPHALIC - Eye Exam Eye Exam: EOMI, Normal appearance, PERRL Pupil Exam: NORMAL ACCOMODATION - ENT Exam ENT Exam: Mucous Membranes Moist, Normal External Ear Exam - Neck Exam Neck Exam: Full ROM. absent: Meningismus - Respiratory Exam Respiratory Exam: NORMAL BREATHING PATTERN. absent: Respiratory Distress - Cardiovascular Exam Cardiovascular Exam: REGULAR RHYTHM, +S1, +S2 - GI/Abdominal Exam GI & Abdominal Exam: Soft, Normal Bowel Sounds. absent: Tenderness - Extremities Exam Extremities Exam: Full ROM, Normal Capillary Refill. absent: Calf Tenderness, Pedal Edema - Back Exam Back Exam: absent: CVA tenderness (L), CVA tenderness (R) - Neurological Exam Neurological Exam: Alert, Awake, Oriented x3 Neuro motor strength exam: Left Upper Extremity: 5, Right Upper Extremity: 5, Left Lower Extremity: 5, Right Lower Extremity: 5 - Psychiatric Exam Psychiatric exam: Normal Affect, Normal Mood - Skin Skin Exam: Dry, Normal Color, Warm Assessment and Plan - Assessment and Plan (Free Text) Plan: 1.SVT episode - resolved with IV Cardizem - at present NSR rate controlled -PO cardizem started however HR at present in the 60's so on hold for HR less than 65 -TSH - wnl 2.Elevated Troponin -trop trending down - Cardio consulted - Dr Reyes rec Lexiscan Stress mary if abn Cardiac cath - will sched Stress test Friday if Trop normalizes - cont ASA, ARB 3.Acute kidney injury vs CKD stage III - unclear etiology - Crea 1.7 now 1.5 4.Hypertension cont Losartan 5.Hypothyroidism - controlled .TSH - wnl. Continue Synthroid 6. Electrolyte abnormality hypomagnesemia , Hypokalemia- replace prn
[2018-12-20] MEDS: Lactated Ringer's 1,000 ML IV SCH ×2 (04:47→15:33)
[2018-12-20] MEDS: Levothyroxine 50 MCG TAB PO SCH (06:00)
[2018-12-20 06:34] LABS: HEMOGLOBIN 10.1 g/dL (12.0-16.0); MEAN CELL VOLUME 86.8 fl (81.0-99.0); MEAN CORPUSCULAR HEMOGLOBIN 28.6 pg (27.0-31.0); MEAN CORPUSCULAR HGB CONC 32.9 g/dL (33.0-37.0); RBC 3.54 Mil/uL (3.80-5.20); WHITE BLOOD COUNT 8.4 K/uL (4.8-10.8)
[2018-12-20 06:54] LABS: ALB/GLOB RATIO 1.2 (1.0-2.1); ALBUMIN 3.1 g/dL (3.5-5.0); CALCIUM 8.7 mg/dL (8.4-10.2)
[2018-12-20 06:55] LABS: TROPONIN I 0.066 ng/mL (0.00-0.120)
[2018-12-20] MEDS: Pantoprazole 40 mg EC Tab PO SCH (08:41)
--- NOTE | 2018-12-20 10:44 | CP.PCM.PN ---
Subjective - Date & Time of Evaluation Date of Evaluation: 12/20/18 Time of Evaluation: 10:00 - Subjective Subjective: No further episodes of SVT Troponin trended down pt denies any chest pain no SOB no palpitation no abd pain Objective - Vital Signs/Intake and Output Vital Signs (last 24 hours): Temp Pulse Resp BP Pulse Ox 97.9 F 65 18 123/70 98 12/20/18 08:17 12/20/18 08:17 12/20/18 08:17 12/20/18 08:17 12/20/18 08:17 - Medications Medications: Current Medications Acetaminophen (Tylenol 325mg Tab) 650 mg PO Q6 PRN PRN Reason: Pain, moderate (4-7) Aspirin (Ecotrin) 81 mg PO DAILY [facility] Last Admin: 12/20/18 08:41 Dose: 81 mg Diltiazem HCl (Cardizem) 30 mg PO Q8H [facility] Last Admin: 12/20/18 05:07 Dose: 30 mg Lactated Ringer's (Lactated Ringer's) 1,000 mls @ 100 mls/hr IV .Q10H [facility] Last Admin: 12/20/18 04:47 Dose: 100 mls/hr Levothyroxine Sodium (Synthroid) 50 mcg PO DAILY@0630 [facility] Last Admin: 12/20/18 06:00 Dose: 50 mcg Losartan Potassium (Cozaar) 50 mg PO BID [facility] Last Admin: 12/18/18 02:00 Dose: Not Given Pantoprazole Sodium (Protonix Ec Tab) 40 mg PO DAILY [facility] Last Admin: 12/20/18 08:41 Dose: 40 mg - Labs Labs: 12/20/18 04:30 12/20/18 04:30 PT 12.3 Seconds (9.8-13.1) 12/17/18 21:23 INR 1.1 12/17/18 21:23 APTT 30.7 Seconds (25.6-37.1) 12/17/18 21:23 - Constitutional Appears: Non-toxic, No Acute Distress - Head Exam Head Exam: ATRAUMATIC, NORMAL INSPECTION, NORMOCEPHALIC - Eye Exam Eye Exam: EOMI, Normal appearance, PERRL Pupil Exam: NORMAL ACCOMODATION - ENT Exam ENT Exam: Mucous Membranes Moist, Normal External Ear Exam - Neck Exam Neck Exam: Full ROM. absent: Meningismus - Respiratory Exam Respiratory Exam: NORMAL BREATHING PATTERN. absent: Respiratory Distress - Cardiovascular Exam Cardiovascular Exam: REGULAR RHYTHM, +S1, +S2 - GI/Abdominal Exam GI & Abdominal Exam: Soft, Normal Bowel Sounds. absent: Tenderness - Extremities Exam Extremities Exam: Full ROM, Normal Capillary Refill. absent: Calf Tenderness, Pedal Edema - Back Exam Back Exam: absent: CVA tenderness (L), CVA tenderness (R) - Neurological Exam Neurological Exam: Alert, Awake, Oriented x3 Neuro motor strength exam: Left Upper Extremity: 5, Right Upper Extremity: 5, Left Lower Extremity: 5, Right Lower Extremity: 5 - Psychiatric Exam Psychiatric exam: Normal Affect, Normal Mood - Skin Skin Exam: Dry, Normal Color, Warm Assessment and Plan - Assessment and Plan (Free Text) Plan: 1.SVT episode - resolved with IV Cardizem in the ED - at present NSR rate controlled -PO cardizem started however HR at present in the 60's so on hold for HR less than 65 -TSH - wnl 2.Elevated Troponin -trop trended down to normal - Cardio consulted - Dr Reyes rec Stress test and if abn Cardiac cath - will sched Pharm Stress test tomorrow - cont ASA, ARB 3.Acute kidney injury vs CKD stage III - unclear etiology - Crea 1.7 now 1.2 4.Hypertension cont Losartan 5.Hypothyroidism - controlled .TSH - wnl. -Continue Synthroid 6. Electrolyte abnormality hypomagnesemia , Hypokalemia- replace prn
[2018-12-20] MEDS ORDERED: Magnesium Sulfate 2 gm/50 ml 2 GM/50 ML BAG IVPB ONE (18:13)
[2018-12-20] MEDS ORDERED: Potassium Chloride 20 mEq/15 ml LIQ UD PO ONE (18:13)
--- NOTE | 2018-12-20 18:13 | CP.PCM.PN ---
Subjective - Date & Time of Evaluation Date of Evaluation: 12/20/18 Time of Evaluation: 18:10 - Subjective Subjective: PT HAS NOT HAD ANY RECURRENT PALP. CONTINUES TO DENY ANY CP. PTS TROP HAVE NORMALIZED WITH CR IMPROVEMENT. Objective - Vital Signs/Intake and Output Vital Signs (last 24 hours): Temp Pulse Resp BP Pulse Ox 98.3 F 64 18 160/65 H 97 12/20/18 16:21 12/20/18 16:21 12/20/18 16:21 12/20/18 16:21 12/20/18 16:21 - Medications Medications: Current Medications Acetaminophen (Tylenol 325mg Tab) 650 mg PO Q6 PRN PRN Reason: Pain, moderate (4-7) Aspirin (Ecotrin) 81 mg PO DAILY [facility] Last Admin: 12/20/18 08:41 Dose: 81 mg Diltiazem HCl (Cardizem) 30 mg PO Q8H [facility] Last Admin: 12/20/18 15:30 Dose: 30 mg Lactated Ringer's (Lactated Ringer's) 1,000 mls @ 100 mls/hr IV .Q10H [facility] Last Admin: 12/20/18 15:33 Dose: Not Given Levothyroxine Sodium (Synthroid) 50 mcg PO DAILY@0630 [facility] Last Admin: 12/20/18 06:00 Dose: 50 mcg Losartan Potassium (Cozaar) 50 mg PO BID [facility] Last Admin: 12/18/18 02:00 Dose: Not Given Pantoprazole Sodium (Protonix Ec Tab) 40 mg PO DAILY [facility] Last Admin: 12/20/18 08:41 Dose: 40 mg - Labs Labs: 12/20/18 04:30 12/20/18 04:30 PT 12.3 Seconds (9.8-13.1) 12/17/18 21:23 INR 1.1 12/17/18 21:23 APTT 30.7 Seconds (25.6-37.1) 12/17/18 21:23 - Constitutional Appears: Non-toxic - Head Exam Head Exam: ATRAUMATIC, NORMAL INSPECTION, NORMOCEPHALIC - Eye Exam Eye Exam: EOMI, Normal appearance, PERRL Pupil Exam: NORMAL ACCOMODATION, PERRL - ENT Exam ENT Exam: Mucous Membranes Moist, Normal Exam - Neck Exam Neck Exam: Full ROM, Normal Inspection. absent: Lymphadenopathy - Respiratory Exam Respiratory Exam: Clear to Ausculation Bilateral, NORMAL BREATHING PATTERN - GI/Abdominal Exam GI & Abdominal Exam: Soft, Normal Bowel Sounds. absent: Tenderness - Rectal Exam Rectal Exam: Deferred - Extremities Exam Extremities Exam: Full ROM, Normal Capillary Refill, Normal Inspection. absent: Joint Swelling, Pedal Edema - Back Exam Back Exam: NORMAL INSPECTION - Neurological Exam Neurological Exam: Alert, Awake, CN II-XII Intact, Normal Gait, Oriented x3 - Psychiatric Exam Psychiatric exam: Normal Affect, Normal Mood - Skin Skin Exam: Dry, Intact, Normal Color, Warm Assessment and Plan (1) SVT (supraventricular tachycardia) Status: Acute (2) Troponin level elevated Status: Acute (3) HTN (hypertension) Status: Acute - Assessment and Plan (Free Text) Plan: I SUSPECT DEMAND ISCHEMIA LEADING TO MINOR TROP BUMP. TROP DID NOT DECREASE WITHIN NORMAL TIME RANGE LIKELY DUE TO RENAL INSUFF. PT SHOULD UNDERGO L[place]ISC[address] ST. IF ABN THEN CATH. PT SHOULD BE ON ASA 81MG DAILY AND TO CONTINUE ON D/C.
[2018-12-21] MEDS: Lactated Ringer's 1,000 ML IV SCH ×2 (00:30→11:42)
[2018-12-21] MEDS: Levothyroxine 50 MCG TAB PO SCH (05:49)
[2018-12-21 06:27] LABS: CALCIUM 9.1 mg/dL (8.4-10.2)
[2018-12-21] MEDS: Pantoprazole 40 mg EC Tab PO SCH (08:15)
--- NOTE | 2018-12-21 11:09 | US ---
Date of service: 12/21/2018 PROCEDURE: Bilateral lower extremity venous duplex Doppler. HISTORY: Elevated troponin, DVT suspected COMPARISON: None available. TECHNIQUE: Bilateral common femoral, superficial femoral, popliteal and posterior tibial veins were evaluated. Flow was assessed with color Doppler, compressibility, assessment of phasic flow and augmentation response. FINDINGS: COMMON FEMORAL VEIN: Right CFV: Unremarkable. Left CFV: Unremarkable. SUPERFICIAL FEMORAL VEIN: Right SFV: Unremarkable. Left SFV: Unremarkable. POPLITEAL VEIN: Right Popliteal: Unremarkable. Left Popliteal: Unremarkable. POSTERIOR TIBIAL VEIN: Right PTV: Unremarkable. Left PTV: Unremarkable. OTHER FINDINGS: Small left popliteal fossa cyst measures 0.7 x 2.7 x 1.7 cm. IMPRESSION: No evidence of deep venous thrombosis.
--- NOTE | 2018-12-21 15:46 | CP.PCM.PN ---
Subjective - Date & Time of Evaluation Date of Evaluation: 12/21/18 Time of Evaluation: 15:42 - Subjective Subjective: Patient seen bedside sitting up comfortable. No new complaints, denies chest pain, palpitations, SOB, change in vision, dizziness, new-onset edema and fever. Granddaughter present. Objective - Vital Signs/Intake and Output Vital Signs (last 24 hours): Temp Pulse Resp BP Pulse Ox 98 F 65 18 171/75 H 96 12/21/18 12:06 12/21/18 12:06 12/21/18 12:06 12/21/18 12:06 12/21/18 12:06 - Medications Medications: Current Medications Acetaminophen (Tylenol 325mg Tab) 650 mg PO Q6 PRN PRN Reason: Pain, moderate (4-7) Amlodipine Besylate (Norvasc) 2.5 mg PO DAILY [facility] Last Admin: 12/21/18 10:19 Dose: Not Given Aspirin (Ecotrin) 81 mg PO DAILY [facility] Last Admin: 12/21/18 08:15 Dose: Not Given Diltiazem HCl (Cardizem) 30 mg PO Q8H [facility] Last Admin: 12/21/18 05:49 Dose: Not Given Lactated Ringer's (Lactated Ringer's) 1,000 mls @ 100 mls/hr IV .Q10H [facility] Last Admin: 12/21/18 11:42 Dose: Not Given Levothyroxine Sodium (Synthroid) 50 mcg PO DAILY@0630 [facility] Last Admin: 12/21/18 05:49 Dose: Not Given Losartan Potassium (Cozaar) 50 mg PO BID [facility] Last Admin: 12/18/18 02:00 Dose: Not Given Pantoprazole Sodium (Protonix Ec Tab) 40 mg PO DAILY [facility] Last Admin: 12/21/18 08:15 Dose: Not Given - Labs Labs: 12/20/18 04:30 12/21/18 05:15 PT 12.3 Seconds (9.8-13.1) 12/17/18 21:23 INR 1.1 12/17/18 21:23 APTT 30.7 Seconds (25.6-37.1) 12/17/18 21:23 - Constitutional Appears: Non-toxic, No Acute Distress - Eye Exam Eye Exam: Normal appearance - ENT Exam ENT Exam: Mucous Membranes Moist - Respiratory Exam Respiratory Exam: NORMAL BREATHING PATTERN. absent: Respiratory Distress - Cardiovascular Exam Cardiovascular Exam: REGULAR RHYTHM - GI/Abdominal Exam GI & Abdominal Exam: absent: Tenderness - Extremities Exam Extremities Exam: absent: Pedal Edema - Neurological Exam Neurological Exam: Alert, Awake, Oriented x3 - Psychiatric Exam Psychiatric exam: Normal Affect, Normal Mood - Skin Skin Exam: Normal Color Assessment and Plan - Assessment and Plan (Free Text) Assessment: 88 y/o F with PMH of Hypothyroid, HTN, Vertigo, and Gastritis admitted to [facility] for evaluation and treatment of Palpitations, Tachyarrhythmia and elevated troponin. Plan: SVT episode - resolved with IV Cardizem in the ED - at present NSR rate controlled - PO cardizem started however HR at present in the 60's so on hold for HR less than 65 - TSH - wnl Elevated Troponin - trop trended down to normal - Cardio consulted - Dr Reyes cancelled stress test and ordered u/s (no evidence of DVT) ----- cardiac cath at [facility] [place] today - cont ASA, ARB Acute kidney injury vs CKD stage III - unclear etiology, likely d/t dehydration - Crea 1.7 now 1.2 Hypertension - cont Losartan - begin norvasc 2.5 Hypothyroidism - controlled, TSH - wnl. - Continue Synthroid Electrolyte abnormality - hypomagnesemia, hypokalemia - replace as needed - follow up cmp DVT Prophylaxis - SCD
[2018-12-21 19:56] VITALS: BP 163/70; PULSE 66; TEMP 97.5; O2SAT 98
--- NOTE | 2018-12-22 00:09 | CP.PCM.DIS ---
Provider - Provider Date of Admission: 12/17/18 22:23 Attending physician: Rafy Harris Primary care physician: None Consults: 12/17/18 23:37 Cardiology Consult Routine Comment: Consulting Provider: Jayson Reyes Consulting Physician: Jayson Reyes Reason for Consult: Tachy/Elevated trop Time Spent in preparation of Discharge (in minutes): 40 Diagnosis - Discharge Diagnosis (1) SVT (supraventricular tachycardia) Status: Acute Comment: Controlled with Cardizem 30 mg PO TID (2) Troponin level elevated Status: Acute Comment: Improved, Most likely elevated secopndary to SVT and KARY (3) KARY (acute kidney injury) Status: Acute Comment: Improved (4) Hypothyroid Status: Acute Comment: Controlled (5) Electrolyte abnormality Status: Acute Comment: Resolved (6) HTN (hypertension) Status: Chronic Hospital Course - Lab Results Lab Results: Most Recent Lab Values WBC 8.4 K/uL (4.8-10.8) 12/20/18 04:30 RBC 3.54 Mil/uL (3.80-5.20) L 12/20/18 04:30 Hgb 10.1 g/dL (12.0-16.0) L 12/20/18 04:30 Hct 30.7 % (34.0-47.0) L 12/20/18 04:30 MCV 86.8 fl (81.0-99.0) 12/20/18 04:30 MCH 28.6 pg (27.0-31.0) 12/20/18 04:30 MCHC 32.9 g/dL (33.0-37.0) L 12/20/18 04:30 RDW 13.0 % (11.5-14.5) 12/20/18 04:30 Plt Count 200 K/uL (130-400) 12/20/18 04:30 MPV 9.5 fl (7.2-11.7) 12/17/18 21:23 Neut % (Auto) 70.0 % (50.0-75.0) 12/17/18 21:23 Lymph % (Auto) 22.1 % (20.0-40.0) 12/17/18 21:23 [place] % (Auto) 7.2 % (0.0-10.0) 12/17/18 21:23 Eos % (Auto) 0.3 % (0.0-4.0) 12/17/18 21:23 Baso % (Auto) 0.4 % (0.0-2.0) 12/17/18 21:23 Neut # (Auto) 8.2 K/uL (1.8-7.0) H 12/17/18 21:23 Lymph # (Auto) 2.6 K/uL (1.0-4.3) 12/17/18 21:23 [place] # (Auto) 0.9 K/uL (0.0-0.8) H 12/17/18 21:23 Eos # (Auto) 0.0 K/uL (0.0-0.7) 12/17/18 21: Baso # (Auto) 0.1 K/uL (0.0-0.2) 12/17/18 21: ESR 25 mm/hr (0-30) 12/19/18 04:30 PT 12.3 Seconds (9.8-13.1) 12/17/18 21: INR 1.1 12/17/18 21: APTT 30.7 Seconds (25.6-37.1) 12/17/18 21:23 D-Dimer, Quantitative 436 ng/mlDDU (0-230) H 12/20/18 04:30 Sodium 139 mmol/l (132-148) 12/21/18 05:15 Potassium 4.8 MMOL/L (3.6-5.0) 12/21/18 05:15 Chloride 106 mmol/L (98-107) 12/21/18 05:15 Carbon Dioxide 27 mmol/L (22-30) 12/21/18 05:15 Anion Gap 11 (10-20) 12/21/18 05:15 BUN 19 mg/dl (7-17) H 12/21/18 05:15 Creatinine 1.2 mg/dl (0.7-1.2) 12/21/18 05:15 Est GFR ( Amer) 52 12/21/18 05:15 Est GFR (Non-Af Amer) 43 12/21/18 05:15 Random Glucose 94 mg/dL (65-105) 12/21/18 05:15 Hemoglobin A1c 6.1 % (4.2-6.5) 12/18/18 04:50 Calcium 9.1 mg/dL (8.4-10.2) 12/21/18 05:15 Phosphorus 3.6 mg/dl (2.5-4.5) 12/17/18 21:23 Magnesium 2.1 MG/DL (1.6-2.3) 12/21/18 05:15 Total Bilirubin 0.4 mg/dl (0.2-1.3) 12/20/18 04:30 AST 35 U/L (14-36) 12/20/18 04:30 ALT 30 U/L (9-52) 12/20/18 04:30 Alkaline Phosphatase 54 U/L (38-126) 12/20/18 04:30 Troponin I 0.0660 ng/mL (0.00-0.120) 12/20/18 04:30 NT-Pro-B Natriuret Pep 1320 pg/ml (0-900) H 12/19/18 04:30 Total Protein 5.8 G/DL (6.3-8.2) L 12/20/18 04:30 Albumin 3.1 g/dL (3.5-5.0) L 12/20/18 04:30 Globulin 2.7 gm/dL (2.2-3.9) 12/20/18 04:30 Albumin/Globulin Ratio 1.2 (1.0-2.1) 12/20/18 04:30 Triglycerides 99 mg/DL (0-149) 12/18/18 04:50 Cholesterol 157 mg/dL (0-199) 12/18/18 04:50 LDL Cholesterol Direct 86 mg/dL (0-129) 12/18/18 04:50 HDL Cholesterol 38 MG/DL (30-70) 12/18/18 04:50 Free T4 1.33 ng/dL (0.78-2.19) 12/19/18 04:30 Total T3 0.621 nmol/L (1.49-2.60) L 12/19/18 04:30 TSH 3rd Generation 1.50 mIU/ML (0.46-4.68) 12/19/18 04:30 - Hospital Course Hospital Course: 88 y/o F with PMH of Hypothyroid, HTN, Vertigo, and Gastritis admitted to [facility] for evaluation and treatment of Palpitations, Tachyarrhythmia and elevated troponin. Cardiology was consulted after admission, patient was started on Cardizem 30 mg PO TID. Patient was found to have elevated trop, Most likely elevated secondary to SVT and KARY. Patient is s/p Cardiac cath, POD#0, As per cardio: no significant CAD after cardiac cath. Patient was found to have hypomagnesemia and hypokalemia, replaced. Patient was examined s/p cardiac cath, c/o no pain, reports feeling "perfect" and requesting to go home today. Patient was instructed to c/w following medications: Cardizem, norvasc, Aspirin, Levothyroxin, ER precautions discussed, f/u with PMD and cardiology in 1 week. - Patient understands and agrees with d/c plan Discharge Exam - Head Exam Head Exam: ATRAUMATIC, NORMAL INSPECTION, NORMOCEPHALIC - Eye Exam Eye Exam: EOMI, Normal appearance, PERRL Pupil Exam: NORMAL ACCOMODATION - ENT Exam ENT Exam: Mucous Membranes Moist - Neck Exam Neck exam: Normal Inspection - Respiratory Exam Respiratory Exam: Clear to PA & Lateral, NORMAL BREATHING PATTERN. absent: Accessory Muscle Use, Chest Wall Tenderness, Decreased Breath Sounds, Prolonged Expiratory Phase, Wheezes, Respiratory Distress, Stridor - Cardiovascular Exam Cardiovascular Exam: REGULAR RHYTHM, +S1, +S2. absent: Bradycardia, Tachycardia - GI/Abdominal Exam GI & Abdominal Exam: Normal Bowel Sounds, Soft. absent: Guarding, Rebound, Rigid, Tenderness - Extremities Exam Extremities exam: normal inspection Additional comments: groin is intact, cath site, nontender, clean/dry/intact - Back Exam Back exam: absent: CVA tenderness (L), CVA tenderness (R) - Neurological Exam Neurological exam: Alert, CN II-XII Intact, Normal Gait, Oriented x3, Reflexes Normal - Psychiatric Exam Psychiatric exam: Normal Affect - Skin Skin Exam: Dry, Intact, Normal Color, Warm Discharge Plan - Discharge Medications Prescriptions: amLODIPine [Norvasc] 2.5 mg PO DAILY #30 tab Aspirin [Ecotrin] 81 mg PO DAILY #30 tabec diltiaZEM [Cardizem] 30 mg PO Q8H #90 tab Levothyroxine [Synthroid] 50 mcg PO DAILY #30 tab Omeprazole Magnesium [Acid Improvement Engineer] 20 mg PO DAILY #30 capsule.dr - Follow Up Plan Condition: GUARDED Disposition: HOME/ ROUTINE Instructions: DASH Diet, Paroxysmal Supraventricular Tachycardia (DC), Hypertension (DC) Additional Instructions: F/u with PMD in 1 week F/u with cardiology in 1 week Return to ER if any chest pain/palpitations/dizziness/SOB or pain Medications sent to [id number] pharmacy Referrals: [id number] [Provider Group] Lisseth Lynn MD [Resident] - Jayson Reyes MD [Staff Provider] -
== END 2018-12-21 21:35 | disposition home or self-care (01) | DRG 192 ==
LOC: H.ER 20:35 → H.ERHOLD 22:23 → OBSVTOIN 22:23 → INTOOBSV 22:23 → H.TEL 12-18 00:23
PROVIDERS: ADMIT Internal Medicine; ATTEND Internal Medicine
PROC: B216YZZ Fluoroscopy of Right and Left Heart using Other Contrast (ICD-10-PCS; principal; 2018-12-21)
PROC: B41FZZZ Fluoroscopy of Right Lower Extremity Arteries (ICD-10-PCS; 2018-12-21)
DX: I47.1 Supraventricular tachycardia (principal); N17.9 Acute kidney failure, unspecified; E86.0 Dehydration; I24.8 Other forms of acute ischemic heart disease; E83.42 Hypomagnesemia; E87.6 Hypokalemia; I10 Essential (primary) hypertension; E03.9 Hypothyroidism, unspecified; K29.50 Unspecified chronic gastritis without bleeding; I08.0 Rheumatic disorders of both mitral and aortic valves; Z79.890 Hormone replacement therapy; E78.00 Pure hypercholesterolemia, unspecified